=== PATIENT | female | born 1950 | race Caucasian/White ===

== ENCOUNTER 2024-01-26 13:06 | Outpatient (AMB) | payer MEDICARE, SELFPAY ==
--- NOTE | 2024-01-26 13:37 | HO.NEPHOV_ITS ---
Vital Signs 01/26/24 13:39 Height 4 ft 10 in Weight 148 lb 4 oz BMI 31.0 BP 160/94 H Blood Pressure Location Lt brachial Intake Visit Reasons: Transferring care from [facility] Pickle Water Pump Operator Required: No Accompanied by: Mother Allergies penicillin G Allergy (Verified 01/25/24 08:55) Unknown HPI Comments Details: Jeanette was seen in consultation and transfer care for her CKD as a result of adult dominant polycystic kidney disease, diagnosed at 56 years incidentally. Her Dad had PKD with ESRD( was on HD for 10 years). Her 2 children has it. She has been on tolvaptan as well as Farxiga. In the past she needed drainage of the cysts by interventional radiology( Dr Dexter). She has history of low-sodium with high water intake while being on hydrochlorothiazide and is currently off that medication. She had blurry vision with losartan and was on lisinopril at some point in time. She complaints of recurrent sciatica but nothing active now. She denies flank pain, hematuria, renal stones, dysuria, orthostatic symptoms. She does not take any nonsteroidal anti-inflammatories. She is tolerating Farxiga well. She denies any chest pain, shortness of breath, paroxysmal nocturnal dyspnea, orthopnea, new bone or back pain. She has been compliant with her medications. Her BP is not well controlled. [facility] Medical History (Updated 01/26/24 @ 13:43 by Rakesh Zapata MD) Polycystic kidney Depressive disorder Anxiety disorder Social History (Updated 01/26/24 @ 13:37 by Dorcas Figueroa MA) Alcohol intake: never Patient Tobacco Use Status: Never used Tobacco Use of substances other than those prescribed or required for medical reasons: No Review of Systems Const All systems reviewed & are unremarkable except as noted in HPI and below Physical Exam Const General: comfortable and no acute distress Orientation/consciousness: patient oriented x3 HEENT Head: Yes normocephalic Mouth: Normal oral and palatal mucosa present Eyes EOM: EOMs intact bilaterally Neck Neck: Yes supple Resp Auscultation: clear to auscultation bilaterally Cardio Jugular venous distension: no JVD Rate: regular rate GI Palpation (GI): Soft to palpation Auscultation: normal bowel sounds General: Yes no CVA tenderness Back/Spine/Pelvis Back: no CVA tenderness Skin General skin exam: no rashes or lesions noted Neuro General: patient oriented x3 and moves all extremities Extrem General: Yes no pedal edema Results Reviewed Nephrology Results: No Data to Display Assessment & Plan Assessment & Plan (1) Stage 3b chronic kidney disease (CKD): Code(s): N18.32 - Chronic kidney disease, stage 3b Category: Medical (2) Polycystic kidney: Code(s): Q61.3 - Polycystic kidney, unspecified Category: Medical (3) Hypertension: Code(s): I10 - Essential (primary) hypertension Category: Medical Qualifiers: Hypertension type: secondary to other renal disorders Qualified Code(s): I15.1 - Hypertension secondary to other renal disorders Plan Jeanette has CKD from adult polycystic kidney disease. Her serum creatinine has been stable. She has mild albuminuria. She is tolerating tolvaptan well. She is on Farxiga. Her blood pressure is at goal. She maintains good hydration. If her blood pressure control is suboptimal I shall reintroduce low-dose SOPHIA inhibitor. She has no symptoms suggestive of cyst infection, cyst rupture or renal calculi. She will need renal imaging next year. I started her on lisinopril 2.5 mg daily. All these have been discussed in detail. Follow-up blood work ordered. Answered all questions. Orders: Orders Creatinine 1 Month I15.1 - Hypertension secondary to other renal disorders, N18.32 - Chronic kidney disease, stage 3b, Q61.3 - Polycystic kidney, unspecified Blood Urea Nitrogen 1 Month I15.1 - Hypertension secondary to other renal disorders, N18.32 - Chronic kidney disease, stage 3b, Q61.3 - Polycystic kidney, unspecified Electrolytes 1 Month I15.1 - Hypertension secondary to other renal disorders, N18.32 - Chronic kidney disease, stage 3b, Q61.3 - Polycystic kidney, unspecified Calcium 1 Month I15.1 - Hypertension secondary to other renal disorders, N18.32 - Chronic kidney disease, stage 3b, Q61.3 - Polycystic kidney, unspecified Vitamin D 25-OH Total 1 Month I15.1 - Hypertension secondary to other renal disorders, N18.32 - Chronic kidney disease, stage 3b, Q61.3 - Polycystic kidney, unspecified Parathyroid Hormone Intact 1 Month I15.1 - Hypertension secondary to other renal disorders, N18.32 - Chronic kidney disease, stage 3b, Q61.3 - Polycystic kidney, unspecified Medications: New lisinopril 2.5 mg PO DAILY 30 tabs 4RF Coding Level of Care Code New Pt Level 4 (21090) Diagnoses Stage 3b chronic kidney disease (CKD) N18.32 Polycystic kidney Q61.3 Hypertension secondary to other renal disorders I15.1 Hypertension type: secondary to other renal disorders
[2024-01-26 13:39] VITALS: BP 160/94; BMI 31.0
== END 2024-01-26 14:30 | disposition home or self-care (01) ==
PROVIDERS: PCP Internal Medicine; Visit Provider Internal Medicine Nephrology
DX: N18.32 Chronic kidney disease, stage 3b (principal); Q61.3 Polycystic kidney, unspecified; I15.1 Hypertension secondary to other renal disorders
CPT/HCPCS: 99204

== ENCOUNTER → 2024-01-26 13:06 | Outpatient (BNVA) | payer MEDICARE, SELFPAY | PROVIDERS: PCP Internal Medicine; Visit Provider Internal Medicine Nephrology | DX: I15.1 Hypertension secondary to other renal disorders (principal); Q61.3 Polycystic kidney, unspecified; N18.32 Chronic kidney disease, stage 3b; Z79.899 Other long term (current) drug therapy | CPT/HCPCS: 99202 ==

== ENCOUNTER 2024-02-28 11:43 | Outpatient (AMB) | payer MEDICARE, SELFPAY ==
--- NOTE | 2024-02-28 11:51 | HO.NEPHOV_ITS ---
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 Her Dad had PKD with ESRD( was on HD for 10 years). Her 2 children has it. She has been on tolvaptan as well as Farxiga. In the past she needed drainage of the cysts by interventional radiology( Dr Dexter). She has history of low-sodium with high water intake while being on hydrochlorothiazide and is currently off that medication. She had blurry vision with losartan and was on lisinopril at some point in time. She complaints of recurrent sciatica but nothing active now. She denies flank pain, hematuria, renal stones, dysuria, orthostatic symptoms. She does not take any nonsteroidal anti-inflammatories. She is tolerating Farxiga well. She denies any chest pain, shortness of breath, paroxysmal nocturnal dyspnea, orthopnea, new bone or back pain. She has been compliant with her medications. Her BP is nearly at goal. [facility] Medical History (Updated 01/26/24 @ 13:43 by Rakesh Zapata MD) Polycystic kidney Depressive disorder Anxiety disorder Social History Alcohol intake: never Patient Tobacco Use Status: Never used Tobacco Review of Systems Const All systems reviewed & are unremarkable except as noted in HPI and below Physical Exam Vital Signs: Last Vital Signs Pulse 73 02/28/24 11:52 BP 140/82 H 02/28/24 11:52 Pulse Ox 94 02/28/24 11:52 Oxygen Delivery Method Room Air 02/28/24 11:52 BMI result Body Mass Index 30.5 Const General: comfortable and no acute distress Orientation/consciousness: patient oriented x3 HEENT Head: Yes normocephalic Mouth: Normal oral and palatal mucosa present Eyes EOM: EOMs intact bilaterally Neck Neck: Yes supple Resp Auscultation: clear to auscultation bilaterally Cardio Jugular venous distension: no JVD Rate: regular rate GI Palpation (GI): Soft to palpation Auscultation: normal bowel sounds General: Yes no CVA tenderness Back/Spine/Pelvis Back: no CVA tenderness Skin General skin exam: no rashes or lesions noted Neuro General: patient oriented x3 and moves all extremities Extrem General: Yes no pedal edema Results Reviewed Nephrology Results: No Data to Display Assessment & Plan Assessment & Plan (1) Hypertension: Code(s): I10 - Essential (primary) hypertension Category: Medical Qualifiers: Hypertension type: secondary to other renal disorders Qualified Code(s): I15.1 - Hypertension secondary to other renal disorders (2) Polycystic kidney: Code(s): Q61.3 - Polycystic kidney, unspecified Category: Medical (3) Stage 3b chronic kidney disease (CKD): Code(s): N18.32 - Chronic kidney disease, stage 3b Category: Medical Plan Jeanette has CKD from adult polycystic kidney disease. Her serum creatinine has been stable. She has mild albuminuria. She is tolerating tolvaptan well. She is on Farxiga. Her blood pressure is at goal. She maintains good hydration. She can continue lisinopril 2.5 mg daily. She has no symptoms suggestive of cyst infection, cyst rupture or renal calculi. She will need renal imaging next year. All these have been discussed in detail. Follow-up blood work ordered. Answ ered all questions. Orders: Orders Creatinine 3 Months I15.1 - Hypertension secondary to other renal disorders, N18.32 - Chronic kidney disease, stage 3b, Q61.3 - Polycystic kidney, unspecified Electrolytes 3 Months I15.1 - Hypertension secondary to other renal disorders, N18.32 - Chronic kidney disease, stage 3b, Q61.3 - Polycystic kidney, unspecified Blood Urea Nitrogen 3 Months I15.1 - Hypertension secondary to other renal disorders, N18.32 - Chronic kidney disease, stage 3b, Q61.3 - Polycystic kidney, unspecified Medications: Changed From paroxetine HCl 20 mg PO DAILY To paroxetine HCl 40 mg PO DAILY 90 days 90 tabs 4RF Coding Level of Care Code Est Pt Level 4 (00625) Diagnoses Hypertension secondary to other renal disorders I15.1 Hypertension type: secondary to other renal disorders Polycystic kidney Q61.3 Stage 3b chronic kidney disease (CKD) N18.32
[2024-02-28 11:52] VITALS: BP 130/80; PULSE 73; O2SAT 94; BMI 30.5
== END 2024-02-28 12:26 | disposition home or self-care (01) ==
PROVIDERS: PCP Internal Medicine; Visit Provider Internal Medicine Nephrology
DX: I15.1 Hypertension secondary to other renal disorders (principal); Q61.2 Polycystic kidney, adult type; N18.32 Chronic kidney disease, stage 3b
CPT/HCPCS: 99214

== ENCOUNTER → 2024-02-28 11:43 | Outpatient (BNVA) | payer MEDICARE, SELFPAY | PROVIDERS: PCP Internal Medicine; Visit Provider Internal Medicine Nephrology | DX: I15.1 Hypertension secondary to other renal disorders (principal); N18.32 Chronic kidney disease, stage 3b; Q61.3 Polycystic kidney, unspecified | CPT/HCPCS: 99212 ==

== ENCOUNTER 2024-06-05 14:16 | Outpatient (AMB) | payer MEDICARE, SELFPAY ==
--- NOTE | 2024-06-05 14:30 | HO.NEPHOV ---
Vital Signs 06/05/24 14:32 Height 4 ft 10 in Weight 148 lb 2 oz BMI 31.0 BP 118/70 Blood Pressure Location Rt brachial Position Sitting Pulse 93 Pulse Source Pulse Oximeter Pulse Oximetry (%) 98 Oxygen Delivery Method Room Air Intake Visit Reasons: 3-4 mo fu w/ labs-Conf Radiographer Technologist Required: No Accompanied by: Mother Allergies penicillin G Allergy (Verified 06/05/24 14:31) Unknown Medication List - Last Reconciled 06/05/24 by Rakesh Zapata MD cholecalciferol (vitamin D3) 1,250 mcg PO .Q Monthly 90 days dapagliflozin propanediol (Farxiga) 10 mg PO DAILY lactobacillus combo no.11 (Probiotic) 1 cap PO DAILY lisinopril 2.5 mg PO DAILY paroxetine HCl 60 mg PO DAILY tolvaptan (polycys kidney dis) (Jynarque) 1 ea PO PER PKG DIR HPI Comments Details: Jeanette was seen in follow up for her CKD as a result of adult dominant polycystic kidney disease, diagnosed at 56 years incidentally. Her Dad had PKD with ESRD( was on HD for 10 years). Her 2 children has it. She has been on tolvaptan as well as Farxiga. In the past she needed drainage of the cysts by interventional radiology( Dr Dexter). She has history of low-sodium with high water intake while being on hydrochlorothiazide and is currently off that medication. She had blurry vision with losartan and was on lisinopril at some point in time. She complaints of recurrent sciatica but nothing active now. She denies flank pain, hematuria, renal stones, dysuria, orthostatic symptoms. She does not take any nonsteroidal anti-inflammatories. She is tolerating Farxiga well. She denies any chest pain, shortness of breath, paroxysmal nocturnal dyspnea, orthopnea, new bone or back pain. She has been compliant with her medications. Her BP is at goal. [facility] Medical History (Updated 01/26/24 @ 13:43 by Rakesh Zapata MD) Polycystic kidney Depressive disorder Anxiety disorder Social History Alcohol intake: never Patient Tobacco Use Status: Never used Tobacco Review of Systems Const All systems reviewed & are unremarkable except as noted in HPI and below Physical Exam Vital Signs: Last Vital Signs Pulse 93 06/05/24 14:32 BP 118/70 06/05/24 14:32 Pulse Ox 98 06/05/24 14:32 Oxygen Delivery Method Room Air 06/05/24 14:32 BMI result Body Mass Index 31.0 Const General: comfortable and no acute distress Orientation/consciousness: patient oriented x3 HEENT Head: Yes normocephalic Mouth: Normal oral and palatal mucosa present Eyes EOM: EOMs intact bilaterally Neck Neck: Yes supple Resp Auscultation: clear to auscultation bilaterally Cardio Jugular venous distension: no JVD Rate: regular rate GI Palpation (GI): Soft to palpation Auscultation: normal bowel sounds Skin General skin exam: no rashes or lesions noted Neuro General: patient oriented x3 and moves all extremities Extrem General: Yes no pedal edema Results Reviewed Nephrology Results: No Data to Display Assessment & Plan Assessment & Plan (1) Polycystic kidney: Code(s): Q61.3 - Polycystic kidney, unspecified Category: Medical (2) Stage 3b chronic kidney disease (CKD): Code(s): N18.32 - Chronic kidney disease, stage 3b Category: Medical (3) Hypertension: Code(s): I10 - Essential (primary) hypertension Category: Medical Qualifiers: Hypertension type: secondary to other renal disorders Qualified Code(s): I15.1 - Hypertension secondary to other renal disorders Rossi Reid has CKD from adult polycystic kidney disease. Her serum creatinine has been fairly stable. She has mild albuminuria. She is tolerating tolvaptan well. She is on Farxiga. Her blood pressure is at goal. She maintains good hydration. She can continue lisinopril 2.5 mg daily. She has no symptoms suggestive of cyst infection, cyst rupture or renal calculi. She will need renal imaging next year. All these have been discussed in detail. Follow-up blood work ordered. Answered all questions. Orders: Orders Creatinine 4 Months I15.1 - Hypertension secondary to other renal disorders, N18.32 - Chronic kidney disease, stage 3b, Q61.3 - Polycystic kidney, unspecified Blood Urea Nitrogen 4 Months I15.1 - Hypertension secondary to other renal disorders, N18.32 - Chronic kidney disease, stage 3b, Q61.3 - Polycystic kidney, unspecified Electrolytes 4 Months I15.1 - Hypertension secondary to other renal disorders, N18.32 - Chronic kidney disease, stage 3b, Q61.3 - Polycystic kidney, unspecified Medications: Changed From paroxetine HCl 60 mg PO DAILY To paroxetine HCl 60 mg (1.5 x 40 mg) PO DAILY 90 days 135 tabs 3RF Coding Level of Care Code Est Pt Level 4 (03458) Diagnoses Polycystic kidney Q61.3 Stage 3b chronic kidney disease (CKD) N18.32 Hypertension secondary to other renal disorders I15.1 Hypertension type: secondary to other renal disorders
[2024-06-05 14:32] VITALS: BP 118/70; PULSE 93; O2SAT 98; BMI 31.0
--- OUTSIDE RECORDS SUMMARY | 2024-06-05 17:11 | XMS_ITS | Encounter Summary ---
Author Organization [facility] Address [address] [facility] [address] [place] [address] Phone Care Team Providers Care Conduit Cleaner Name Role Phone Hazel Lowry MD Primary Care Provider [phone] Reason for Visit * Reason Comments Med Refill Encounter Details Date Type Department Care Team (Late st Contact Info) Description 03/12/2024 Refill [facility] [address] [facility] [address] [place] [address] Santiago Ramirez MD [address] [facility] [address] [place] [address] Type 2 diabetes mellitus with diabetic chronic kidney disease (HCC) Social History Tobacco Use Types Packs/Day Years Used Date Smoking Tobacco: Never Smokeless Tobacco: Never Alcohol Use Standard Drinks/Week Comments Yes 0 (1 standard drink = 0.6 oz pure alcohol) Alcoholic Drinks/day: Occasional social drink Comments Unknown Sex and Gender Information Value Date Recorded Sex Assigned at Not on file Legal Sex Female 5:17 PM EST Gender Identity Not on file Sexual Orientation Not on file documented as of this encounter Plan of Treatment Not on file documented as of this encounter Visit Diagnoses Diagnosis Type 2 diabetes mellitus with diabetic chronic kidney disease (HCC) documented in this encounter Care Teams Conduit Cleaner Relationship Specialty Start Date End Date Hazel Lowry MD [address] [place], [place] PCP - General 03/23/20 documented as of this encounter
--- OUTSIDE RECORDS SUMMARY | 2024-06-05 17:11 | XMS_ITS | Encounter Summary ---
Author Organization [facility] Address [address] [place] [address] Phone Care Team Providers Care Barley Steeper Name Role Phone Hazel Lowry MD Primary Care Provider [phone] Encounter Details Date Type Department Care Team (Late st Contact Info) Description 10/02/2020 Orders Only [facility] [address] [place] [address] Noe Cullen MD [address] [place] [phone] Chronic kidney disease, stage 2 (mild) Social History Tobacco Use Types Packs/Day Years [...] as of this encounter Visit Diagnoses Diagnosis Chronic kidney disease, stage 2 (mild) documented in this encounter Care Teams Barley Steeper Relationship Specialty Start Date End Date Hazel Lowry MD [address] [place], [place] PCP - General 03/23/20 documented as of this encounter
--- OUTSIDE RECORDS SUMMARY | 2024-06-05 17:11 | XMS_ITS | Encounter Summary ---
Author Organization [facility] Address [address] [place] [address] Phone Care Team Providers Care Supervisor Ski Production Name Role Phone Hazel Lowry MD Primary Care Provider Encounter Details Date Type Department Care Team (Late st Contact Info) Description 08/07/2020 Orders Only [facility] [address] [place] [address] Noe Cullen MD [address] [place] [address], [address] [phone] Chronic kidney disease, stage 2 (mild) Social [...] on file Sexual Orientation Not on file COVID-19 Exposure Response Date Recorded In the last month, have you been in contact with someone who was confirmed or suspected to have Coronavirus / COVID-19? No / Unsure 07/30/2020 9:10 AM EDT documented as of this encounter Plan of Treatment Not on file documented as of this encounter Procedures Procedure Name Priority Date/Time Associated Diagnosis Comments IRON PANEL (FE, TIBC, TSAT) Routine 08/31/2020 3:59 PM EDT Chronic kidney disease, stage 2 (mild) URINE ALBUMIN / CREATININE RATIO Routine 08/31/2020 3:59 PM EDT Chronic kidney disease, stage 2 (mild) VITAMIN D 25 HYDROXY Routine 08/31/2020 3:59 PM EDT Chronic kidney disease, stage 2 (mild) URINALYSIS WITH MICROSCOPIC Routine 08/31/2020 3:59 PM EDT Chronic kidney disease, stage 2 (mild) CBC Routine 08/31/2020 3:59 PM EDT Chronic kidney disease, stage 2 (mild) TSH W/REFLEX TO FT4 Routine 08/31/2020 3 :59 PM EDT Chronic kidney disease, stage 2 (mild) MAGNESIUM Routine 08/31/2020 3:59 PM EDT Chronic kidney disease, stage 2 (mild) documented in this encounter Results * TSH w/reflex to FT4 (08/31/2020 3:59 PM EDT) TSH 0.68 (0.4-4.00) uIU/mL [facility] Comment: Testing performed or reported by [facility], a Service of [facility], [address] [place] [id number] Elena Carey MD, Glue Wheel Operator Blood (Blood, Venous) 08/31/2020 3:59 PM EDT 08/31/2020 4:05 PM EDT us Noe Cullen MD LAB BLOOD ORDERABLES Final Re sult [facility] * Iron Panel (Fe, TIBC, TSAT) (08/31/2020 3:59 PM EDT) Iron 90 (30-160) MCG/DL [facility] UIBC 213 (110-370) MCG/DL [facility] TIBC 303 (140-530) MCG/DL [facility] Iron Saturation (TSat) 30 (20-55) % [facility] Comment: Testing performed or reported by [facility], a Service of [facility], [address] [place] [id number] Elena Carey MD, Glue Wheel Operator Blood (Blood, Venous) 08/31/2020 3:59 PM EDT 08/31/2020 4:05 PM EDT Noe Cullen MD LAB BLOOD ORDERABLES Final Re sult Performing Organization Address [facility] de Phone Number [facility] * (ABNORMAL) Vitamin D 25 Hydroxy (08/31/2020 3:59 PM EDT) Pathologist [facility] Vitamin D, 25-Hydroxy 52.5(H) (20-50) NG/ML [facility] Comment: Testing performed or reported by [facility], a Service of [facility], [address] [place] [phone] Elena Carey MD, Glue Wheel Operator Blood (Blood, Venous) 08/31/2020 3:59 PM EDT 08/31/2020 4:05 PM EDT Noe Cullen MD LAB BLOOD ORDERABLES Final Re sult Performing Organization Address [facility] de Phone Number [facility] * Magnesium (08/31/2020 3:59 PM EDT) [facility] Magnesium 1.6 (1.6-2.3) mg/dL [facility] Comment: Testing performed or reported by [facility], a Service of [facility], [address] [place] [phone] Elena Carey MD, Glue Wheel Operator Blood (Blood, Venous) 08/31/2020 3:59 PM EDT 08/31/2020 4:05 PM EDT Noe Cullen MD LAB BLOOD ORDERABLES Final Re sult Performing Organization Address [facility] de Phone Number [facility] * (ABNORMAL) Urinalysis with microscopic (08/31/2020 3:59 PM EDT) Pathologist [facility] Appearance COLORLESS [facility] Comment:CLEAR Specific [place] 1.008 (1.002-1. 030) [facility] pH Urine 6.0 (5.0-8.0) [facility] Albumin, Urine NEGATIVE (NEG) [facility] Glucose, Ur NEGATIVE (NEG) [facility] Ketones, Urine NEGATIVE (NEG) [facility] Bilirubin Urine NEGATIVE (NEG) [facility] Hemoglobin Presence in Urine NEGATIVE (NEG) [facility] Nitrite, Urine NEGATIVE (NEG) [facility] Leukocyte Esterase Urine 1+(A) (NEG) [facility] Urobilinogen Urine NORMAL (NORM) MG/DL [facility] WBC, Urine 1 (0-5) /HPF [facility] RBC, Urine NONE SEEN (0-3) /HPF [facility] Bacteria SLIGHT(A) (NEG) HPF [facility] Squamous Epithelial, Urine 3 (0-8) /HPF [facility] Trans Epithelial, Urine <1 /HPF [facility] Comment: Testing performed or reported by [facility], a Service of [facility], [address] [place] [phone] Elena Carey MD, Glue Wheel Operator Urine (Urine, Clean Catch) 08/31/2020 3:59 PM EDT 08/31/2020 4:06 PM EDT Noe Cullen MD LAB URINE ORDERABLES Final Re sult Performing Organization Address [facility] de Phone Number [facility] * Urine Albumin / Creatinine Ratio (08/31/2020 3:59 PM EDT) Urine Microalbumin <12.0 (<20) MG/L [facility] Comment: The urine microalbumin test is designed to monitor renal function. When screening for Bence Morel proteinuria, urine electrophoresis is recommended. Microalbumin/Creati nine Ratio Unable to calculate (0-20) MG/GM [facility] Microalb/Creat Ratio 63.0 MG/DL [facility] Comment: Testing performed or reported by [facility], a Service of [facility], [address] [place] [id number] Elena Carey MD, Glue Wheel Operator Urine (Urine, Clean Catch) 08/31/2020 3:59 PM EDT 08/31/2020 4:06 PM EDT Noe Cullen MD LAB URINE ORDERABLES Final Re sult Performing Organization Address [facility] de Phone Number [facility] * (ABNORMAL) CBC (08/31/2020 3:59 PM EDT) White Blood Cells 7.7 (4.0-11.0) K/MM3 [facility] RBC 4.06(L) (4.20-5.40 ) M/MM3 [facility] Hgb 12.2 (11.7-15.5 ) GM/DL [facility] Hematocrit 36.5 (35.7-45.8 ) % [facility] MCV 89.9 (80.0-100. 0) FL [facility] MCH 30.0 (27.0-34.0 ) PG [facility] MCHC 33.4 (33.0-37.0 ) g/dL [facility] Platelets 253 (150-460) K/MM3 [facility] RDW-SD 39.6 (<47.0) FL [facility] MPV 10.4 (9.4-12.4) FL [facility] nRBC Count 0.0 #/100 WBC'S [facility] NRBC Absolute 0.0 K/MM3 [facility] Comment: Testing performed or reported by [facility], a Service of [facility], [address] [place] [address] Elena Carey MD, Glue Wheel Operator Blood (Blood, Venous) 08/31/2020 3:59 PM EDT 08/31/2020 4:05 PM EDT Noe Cullen MD LAB BLOOD ORDERABLES Final Re sult [facility] documented in this encounter Visit Diagnoses Diagnosis Chronic kidney disease, stage 2 (mild) documented in this encounter Care Teams Supervisor Ski Production Relationship Specialty Start Date End Date Hazel Lowry MD [address] [place] [address] PCP - General 03/23/20 documented as of this encounter
--- OUTSIDE RECORDS SUMMARY | 2024-06-05 17:11 | XMS_ITS | Patient Health Record ---
Author Organization [facility] Address [address] [place] [address] Support Name Relationship Address Phone GEENA PAIZ Guarantor Unknown [phone] Reason For Referral No Information Medications Medication SIG (Take, Route, Fr equency, Duration) Notes Start Date End Date Status Lisinopril 10MG 1 ORAL daily for -3 [facility]- 07/30/2012 Active PARoxetine HCl 10MG 1 ORAL daily for -3 [facility]- 11/08/2011 Active Wellbutrin SR 150MG 1 ORAL twice daily for -3 [place] [facility] 07/11 Active Vitamin D2 50,000 IU ORAL WEEKLY for -3 [place] [facility] 07/30/2012 Active Problems Problem Type SNOMED Code ICD Code Onset Dates Problem Status W/U Status Risk Notes Problem Depressive disorder (17434634) Depressive disorder, not elsewhere classified (311) Active confirmed Major Problem 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, 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
--- OUTSIDE RECORDS SUMMARY | 2024-06-05 17:11 | XMS_ITS | Encounter Summary ---
Author Organization [facility] Address [address] [place] [address] Phone Care Team Providers Care Loan Associate Name Role Phone Hazel Lowry MD Primary Care Provider Encounter Details Date Type Department Care Team (Late st Contact Info) Description 07/10/2020 Orders Only [facility] [address] [place] [address] Noe Cullen MD [address] [place] [phone] Chronic kidney disease, stage 2 (mild) Social [...] have Coronavirus / COVID-19? No / Unsure 06/24/2020 8:34 AM EDT documented as of this encounter Plan of Treatment Not on file documented as of this encounter Procedures Procedure Name Priority Date/Time Associated Diagnosis Comments RENAL FUNCTION PANEL Routine 08/04/2020 9:28 AM EDT documented in this encounter Results * (ABNORMAL) Renal Function Panel (08/04/2020 9:28 AM EDT) Glucose 103(H) (70-99) MG/DL [facility] BUN 31(H) (8-23) MG/DL [facility] Creatinine 1.8(H) (0.5-1.0) MG/DL [facility] Sodium 142 (133-145) MMOL/L [facility] Potassium 4.5 (3.6-5.2) MMOL/L [facility] Chloride 108(H) (98-107) MMOL/L [facility] Bicarbonate (CO2) 25 (22-29) MMOL/L [facility] Anion Gap 9 (4-17) [facility] Albumin 4.3 (3.4-4.8) GM/DL [facility] Calcium 9.3 (8.6-10.5) MG/DL [facility] Phosphorus, Serum 3.2 (2.5-4.5) MG/DL [facility] Est GFR Non 29 ML/MIN/1.7 3 M2 [facility] Comment: Creatinine based estimated glomerular filtration rate (eGFR) is calculated using the Chronic Kidney Disease Epidemiology Collaboration (CKD-EPI). The CKD-EPI creatinine equation has not been validated in children (<18 years), women or in some racial or ethnic subgroups other than Caucasians and Americans. EST GFR 34 ML/MIN/1.7 3 M2 [facility] Comment: Creatinine based estimated glomerular filtration rate (eGFR) is calculated using the Chronic Kidney Disease Epidemiology Collaboration (CKD-EPI). The CKD-EPI creatinine equation has not been validated in children (<18 years), women or in some racial or ethnic subgroups other than Caucasians and Americans. Testing performed or reported by [facility], a Service of [facility], [address] [place] [address] Elena Carey MD, Green Building Engineer 08/04/2020 9:28 AM EDT 08/04/2020 9:29 AM EDT us Noe Cullen MD LAB BLOOD ORDERABLES Final Re sult [facility] documented in this encounter Visit Diagnoses Diagnosis Chronic kidney disease, stage 2 (mild) documented in this encounter Care Teams Loan Associate Relationship Specialty Start Date End Date Hazel Lowry MD [address] [place] [address] PCP - General 03/23/20 documented as of this encounter
--- OUTSIDE RECORDS SUMMARY | 2024-06-05 17:11 | XMS_ITS | Encounter Summary ---
Author Organization [facility] Address [address] [place] [address] Phone Care Team Providers Care Director Of Promotions Name Role Phone Hazel Lowry MD Primary Care Provider Encounter Details Date Type Department Care Team (Late st Contact Info) Description 11/11/2020 Orders Only [facility] [address] [place] [address] Tracey Mccray [place] Social History Tobacco Use Types Packs/Day Years [...] documented as of this encounter Visit Diagnoses Not on filedocumented in this encounter Care Teams Director Of Promotions Relationship Specialty Start Date End Date Hazel Lowry MD [address] [place] [address] PCP - General 03/23/20 documented as of this encounter
--- OUTSIDE RECORDS SUMMARY | 2024-06-05 17:11 | XMS_ITS | Encounter Summary ---
Author Organization [facility] Address [address] [place] [address] Phone Care Team Providers Care Technology Lab Teacher Name Role Phone Hazel Lowry MD Primary Care Provider [phone] Reason for Referral * Imaging (Routine) - Closed Specialty Diagnoses / Procedures Referred By Petra campbell Referred To Contact Diagnoses Adult type polycystic kidney disease type 1 Procedures Ultrasound renal complete Noe Cullen MD Referral ID Status Reason Start Date Expiration Date Visits Re quested Visits Authorized [id number] Closed 09/25/2020 03/24/2021 1 1 Encounter Details Date Type Department Care Team (Late st Contact Info) Description 09/04/2020 Orders Only [facility] [address] [place] [phone] Noe Cullen MD [address] [place] [address], [address] [phone] Adult type polycystic kidney disease type 1 (Primary Dx); Chronic kidney disease, stage 2 (mild) Social [...] have Coronavirus / COVID-19? No / Unsure 09/01/2020 9:44 AM EDT documented as of this encounter Plan of Treatment Not on file documented as of this encounter Procedures Procedure Name Priority Date/Time Associated Diagnosis Comments US RENAL COMPLETE Routine 04/06/2021 4:0 6 PM EST Adult type polycystic kidney disease type 1 documented in this encounter Results * Ultrasound renal complete (04/06/2021 4:06 PM EST) Anatomical Region Laterality Modality Body Ultrasound us Noe Cullen MD IMG US PROCEDURES Final Resul t documented in this encounter Visit Diagnoses Diagnosis Adult type polycystic kidney disease type 1- Primary Chronic kidney disease, stage 2 (mild) documented in this encounter Care Teams Technology Lab Teacher Relationship Specialty Start Date End Date Hazel Lowry MD [address] [place] [address] PCP - General 03/23/20 documented as of this encounter
--- OUTSIDE RECORDS SUMMARY | 2024-06-05 17:11 | XMS_ITS | Encounter Summary ---
Author Organization [facility] Address [address] [place] [address] Phone Care Team Providers Care Security Investigator Name Role Phone Hazel Lowry MD Primary Care Provider [phone] Encounter Details Date Type Department Care Team (Late st Contact Info) Description 06/12/2020 Orders Only [facility] [address] [place] [address] Noe Cullen MD [address] [place] [phone] Chronic kidney disease, stage 2 (mild) Social [...] Associated Diagnosis Comments RENAL FUNCTION PANEL Routine 07/07/2020 9:58 AM EDT documented in this encounter Results * (ABNORMAL) Renal Function Panel (07/07/2020 9:58 AM EDT) Glucose 120(H) (70-99) MG/DL [facility] BUN 36(H) (8-23) MG/DL [facility] Creatinine 2.2(H) (0.5-1.0) MG/DL [facility] Sodium 139 (133-145) MMOL/L [facility] Potassium 4.8 (3.6-5.2) MMOL/L [facility] Chloride 104 (98-107) MMOL/L [facility] Bicarbonate (CO2) 25 (22-29) MMOL/L [facility] Anion Gap 10 (4-17) [facility] Albumin 4.1 (3.4-4.8) GM/DL [facility] Calcium 9.2 (8.6-10.5) MG/DL [facility] Phosphorus, Serum 4.4 (2.5-4.5) MG/DL [facility] Est GFR Non 22 ML/MIN/1.7 3 M2 [facility] Comment: Creatinine based estimated glomerular filtration rate (eGFR) is calculated using the Chronic Kidney Disease Epidemiology Collaboration (CKD-EPI). The CKD-EPI creatinine equation has not been validated in children (<18 years), women or in some racial or ethnic subgroups other than Caucasians and Americans. EST GFR 25 ML/MIN/1.7 3 M2 [facility] Comment: Creatinine based estimated glomerular filtration rate (eGFR) is calculated using the Chronic Kidney Disease Epidemiology Collaboration (CKD-EPI). The CKD-EPI creatinine equation has not been validated in children (<18 years), women or in some racial or ethnic subgroups other than Caucasians and Americans. Testing performed or reported by [facility], a Service of [facility], [address] [place] [address] Elena Carey MD, Spectrographer 07/07/2020 9:58 AM EDT 07/07/2020 10:02 AM EDT us Noe Cullen MD LAB BLOOD ORDERABLES Final Re sult [facility] documented in this encounter Visit Diagnoses Diagnosis Chronic kidney disease, stage 2 (mild) documented in this encounter Care Teams Security Investigator Relationship Specialty Start Date End Date Hazel Lowry MD [address] [place] [address] PCP - General 03/23/20 documented as of this encounter
--- OUTSIDE RECORDS SUMMARY | 2024-06-05 17:11 | XMS_ITS | Clinical Summary ---
Author Organization [facility] Address [address] [facility] [address] [place] [address] Phone Care Team Providers Care Manager Of Marketing Name Role Phone Hazel Lowry MD Primary Care Provider Allergies Active Allergy Reactions Criticality Noted Date Comments Penicillin G 05/22/2020 Medications Cholecalciferol (Vitamin D3) 1.25 MG (28530 UT) capsule Take 1 capsule by mouth 1 (one) time per week 07/29/2022 Active PARoxetine (PAXIL) 40 MG tablet Take 1 tablet (40 mg total) by mouth 1 (one) time each day in the morning 90 tablet 5 11/30/2022 Active Dapagliflozin Propanediol (Farxiga) 10 MG tabletIndication s:Type 2 diabetes mellitus with diabetic chronic kidney disease (HCC) Take 10 mg by mouth 1 (one) time each day 30 tablet 11 04/12/2023 Active Tolvaptan (Jynarque) 60 & 30 MG tablet therapy pack Take 1 dose pack by mouth in the morning and 1 dose pack in the evening. 28 each 5 08/21/2023 Active Active Problems Problem Noted Date Diagnosed Date Adult type polycystic kidney disease type 1 2 10/2021 Type 2 diabetes mellitus wit h diabetic chronic kidney disease 05/10/2021 Stage 3 chronic kidney disease, not otherwise sp ecified 05/21/2020 Anemia 05/21/2020 Low back pain 05/21/2020 Multiple congenital cysts of kidney 05/21/2020 Type 2 diabetes mellitus without complication Encounters Date Type Department Care Team Description 04/27/2024 Office Communication [facility] [address] [place] [address] Santiago Ramirez MD Adult type polycystic kidney disease type 1 (Primary Dx) 03/22/2024 Orders Only [facility] [address] [place] [phone] Santiago Ramirez MD Adult type polycystic kidney disease type 1 03/15/2024 Office Communication [facility] [address] [place] [phone] Santiago Ramirez MD 03/12/2024 Refill [facility] [address] [place] [phone] Santiago Ramirez MD Type 2 diabetes mellitus with diabetic chronic kidney disease (HCC) from Last 3 Months Family History Medical History Relation Comments Kidney disease Child both sons pdk Kidney disease Father PDK and dialysis Diabetes Mother type 2 insulin d epedent Relation Status Comments Child Father Mother Alive Social History Tobacco Use Types Packs/Day Years Used Date Smoking Tobacco: Never Smokeless Tobacco: Never Tobacco Cessation:Counseling Given: Not Answered Alcohol Use Standard Drinks/Week Comments Yes 0 (1 standard drink = 0.6 oz pure alcohol) Alcoholic Drinks/day: Occasional social drink Comments Unknown Sex and Gender Information Value Date Recorded Sex Assigned at Not on file Legal Sex Female 5:17 PM EST Gender Identity Not on file Sexual Orientation Not on file Last Filed Vital Signs Vital Sign Reading Time Taken Comments Blood Pressure 140/76 08/18/2023 9:27 AM EDT Pulse 69 08/18/2023 9:27 AM EDT Temperature - - Respiratory Rate - - Oxygen Saturation 98% 09/07/2022 8:33 AM EDT Inhaled Oxygen Concentration - - Weight 62.1 kg (137 lb) 08/18/2023 9:27 AM EDT Height 147.3 cm (4' 10 ) 12/06/2019 12:00 PM EDT Body Mass Index 28.63 12/06/2019 12:00 PM EDT Plan of Treatment Health Maintenance Due Date Last Done Comments Breast Cancer Screening 1950 Pneumococcal Vaccine: 65+ Years (1 of 2 - PCV) 1958 Colorectal Cancer Screening: Annual FOBT 2001 Colorectal Cancer Screening: Colonoscopy 2001 Colorectal Cancer Screening: Sigmoidoscopy 2001 Diabetes: Hemoglobin A1C 04/12/2020 020, 08/19/2019, 07/26/2019, Additional history exists Diabetes: Ophthalmology Exam 04/12/2020 Diabetes: Pedal Pulse Checked 04/12/2020 Diabetes: Sensory Foot Exam 04/12/2020 Diabetes: Visual Foot Exam 04/12/2020 Influenza Vaccine (#1) 2023 Hepatitis B Vaccine Aged Out No longe r eligible based on patient's age to complete this topic Procedures Procedure Name Priority Date/Time Associated Diagnosis Comments HEMOGLOBIN A1C Routine 12/12/2019 7:54 AM EDT from Last 3 Months or Most Recently Relevant to Health Maintenance Results * (ABNORMAL) Hemoglobin A1c (12/12/2019 7:54 AM EDT) Hemoglobin A1C 5.7(H) (4.0-5.6) % [facility] 3 Comment: MONITORING: In known diabetic patients, hemoglobin A1c targets should be discussed with health care provider. DIAGNOSTIC USE: ??The [place] Diabetes Association (ADA) and the World Health Organization (WHO) recommend the use of HbA1c to diagnose diabetes using a threshold of 6.5%. Patients who have an HbA1c between 5.7% and 6.4% are considered at increased risk for developing diabetes in the future. CAUTION: Falsely low HbA1c results may be observed in patients with hemolytic anemia, homozygous forms of abnormal hemoglobin (e.g. SS, CC, SC), , recent blood loss or hemoglobin F greater than 7%. Fructosamine may be used as an alternate test in these cases. REFERENCE: ADA: Standards of Medical Care in Diabetes 2020, The Journal of Clinical and Applied Research and Education Volume 43, Supplement 1 Testing performed or reported by ~[facility], ~a Service of [facility], ~[address] [place] [address], [place] [address]~ Elena Carey MD, Insole Presser~ 12/12/2019 7:54 AM EDT us Noe Cullen MD LAB BLOOD ORDERABLES Final Re sult [facility] 3 from Last 3 Months or Most Recently Relevant to Health Maintenance Insurance [facility] MEDICARE [facility] MEDICARE Care Teams Manager Of Marketing Relationship Specialty Start Date End Date Hazel Lowry MD [address] [place] [address] PCP - General 03/23/20
--- OUTSIDE RECORDS SUMMARY | 2024-06-05 17:11 | XMS_ITS | Encounter Summary ---
Author Organization [facility] Address [address] [place] [address] Phone Care Team Providers Care Investigations Director Name Role Phone Hazel Lowry MD Primary Care Provider [phone] Encounter Details Date Type Department Care Team (Late st Contact Info) Description 07/28/2021 Telephone [facility] [address] [place] [address] Noe Cullen MD [address] [place] [address], [address] [phone] Social History Tobacco Use Types Packs/Day Years [...] on file documented as of this encounter Miscellaneous Notes * Telephone Encounter - Breann Willett - 07/29/2021 11:11 AM EDT Called pt lvm to c/b * Telephone Encounter - Debora Harris - 07/28/2021 10:45 AM EDT Pt called, she would like to speak with you reg the status of her [employer] paperwork. Pt is upset because she's been calling all week. Please call her back at [phone]. Thank you documented in this encounter Plan of Treatment Not on file documented as of this encounter Visit Diagnoses Not on filedocumented in this encounter Care Teams Investigations Director Relationship Specialty Start Date End Date Hazel Lowry MD [address] [place] [address] PCP - General 03/23/20 documented as of this encounter
== END 2024-06-05 15:02 | disposition home or self-care (01) ==
LOC: HO.HKA 14:17
PROVIDERS: PCP Internal Medicine; Visit Provider Internal Medicine Nephrology
DX: Q61.3 Polycystic kidney, unspecified (principal); N18.32 Chronic kidney disease, stage 3b; I15.1 Hypertension secondary to other renal disorders
CPT/HCPCS: 99214

== ENCOUNTER → 2024-06-05 14:16 | Outpatient (BNVA) | payer MEDICARE, SELFPAY | PROVIDERS: PCP Internal Medicine; Visit Provider Internal Medicine Nephrology | DX: I15.1 Hypertension secondary to other renal disorders (principal); N18.32 Chronic kidney disease, stage 3b; Q61.3 Polycystic kidney, unspecified | CPT/HCPCS: 99212 ==

== ENCOUNTER 2024-11-01 14:47 | Outpatient (AMB) | payer MEDICARE, SELFPAY ==
--- OUTSIDE RECORDS SUMMARY | 2024-11-01 14:49 | XMS_ITS | Patient Health Record ---
Author Organization [facility] Address [address] [facility] [address] [place] [address] Support Name Relationship Address Phone GEENA PAIZ Guarantor Unknown [phone] Reason For Referral No Information Medications Medication SIG (Take, Route, Fr equency, Duration) Notes Start Date End Date Status Lisinopril 10MG 1 ORAL daily; Duration: -3 Jimenez- 013 Active PARoxetine HCl 10MG 1 ORAL daily; Duration: -3 Jimenez-MJ Active Wellbutrin SR 150MG 1 ORAL twice daily; Duration: -3 Jimenez-MJ 07/27/2012 Active Vitamin D2 50,000 IU ORAL WEEKLY; Duration: -3 Jimenez- Active Problems Problem Type SNOMED Code ICD Code Onset Dates Problem Status W/U Status Risk Notes Problem Depressive disorder (72719716) Depressive disorder, not elsewhere classified (311) Active confirmed Major Problem Congenital cystic disease of kidney (61920983) Congenital polycystic kidney, unspecified type (753.12) Active confirmed Major Problem Gynecological examination normal (827106764925038) Routine gynecological examination (V72.31) Active confirmed Major Problem Screening for malignant neoplasm of colon (047863043) Special screening for malignant neoplasms, colon (V76.51) Active confirmed Major Plan Of Treatment No Information Insurance Providers Payer Name Payer Address Payer Phone Subscriber Number Group Number Insured Name Patient Relationship to Insured Coverage Start Date Coverage End Date CIGNA [address] [place], [place] [id number] [phone] [id number] GEENA PAIZ Self - patient is the insured
--- OUTSIDE RECORDS SUMMARY | 2024-11-01 14:49 | XMS_ITS | Clinical Summary ---
Author Organization [facility] Address [address] [facility] [address] [place] [address] Phone Care Team Providers Care Paper Ruler Name Role Phone Hazel Lowry MD Primary Care Provider Allergies Active Allergy Reactions Criticality Noted Date Comments Penicillin G 05/22/2020 Medications Cholecalciferol (Vitamin D3) 1.25 MG (55072 UT) capsule Take 1 capsule by mouth [...] 05/21/2020 Type 2 diabetes mellitus without complication Family History Medical History Relation Comments Kidney [...] Last Done Comments Breast Cancer Screening 1952 Colorectal Cancer Screening: Annual FOBT 2001 Colorectal Cancer Screening: Colonoscopy 2001 Colorectal Cancer Screening: Sigmoidoscopy 2001 Diabetes: Hemoglobin A1C 04/12/2020 020, 08/19/2019, 07/26/2019, Additional history exists Diabetes: Ophthalmology Exam 04/12/2020 Diabetes: Pedal Pulse Checked 04/12/2020 Diabetes: Sensory Foot Exam 04/12/2020 Diabetes: Visual Foot Exam 04/12/2020 Influenza Vaccine (#1) 2024 05/06/2020, 2018 Pneumococcal Vaccine: 50+ Years Completed 03/24/2018, 01/09/2016 Pneumococcal Vaccine: Peds (0 to 5 Years) and At-Risk Patients (6 to 49 Years) Discontinued 03/24/2018, 01/09/2016 Hepatitis B Vaccine Aged Out No longe r eligible based on patient's age to complete this topic Procedures Procedure Name Priority Date/Time Associated Diagnosis Comments HEMOGLOBIN A1C Routine 12/12/2019 7:54 AM EDT from Last 3 Months or Most Recently Relevant to Health Maintenance Results * (ABNORMAL) Hemoglobin A1c (12/12/2019 7:54 AM EDT) Hemoglobin A1C 5.7(H) (4.0-5.6) % [facility] 3 Comment: MONITORING: In known diabetic patients, hemoglobin A1c targets should be discussed with health care provider. DIAGNOSTIC USE: The [place] Diabetes Association (ADA) and the World Health [...] Supplement 1 Testing performed or reported by ~[facility], ~a Service of [facility], ~[address] [place] [id number]~ Elena Carey MD, Professor Of Environmental Engineering~ 12/12/2019 7:54 AM EDT us Noe Cullen MD LAB BLOOD ORDERABLES Final Re sult [facility] 3 from Last 3 Months or Most Recently Relevant to Health Maintenance Insurance [facility] Medicare [facility] Medicare Care Teams Paper Ruler Relationship Specialty Start Date End Date Hazel Lowry MD [address] [place], [place] PCP - General 03/23/20
--- NOTE | 2024-11-01 14:54 | HO.NEPHOV_ITS ---
Vital Signs 11/01/24 14:56 Height 4 ft 10 in Weight 150 lb BMI 31.3 BP 120/80 Blood Pressure Location Lt brachial Position Sitting Pulse 78 Pulse Source Pulse Oximeter Pulse Oximetry (%) 98 Oxygen Delivery Method Room Air Intake Visit Reasons: 4 MO [facility] Welder Operator Required: No Accompanied by: Self / Same As Patient Allergies penicillin G Allergy (Verified 11/01/24 14:56) Unknown HPI Comments Details: Jeanette was seen in follow up for her CKD as a result of adult dominant polycystic kidney disease, diagnosed at 56 years incidentally. Her Dad had PKD with ESRD( was on HD for 10 years). Her 2 children has it. She has been on tolvaptan as well as Farxiga. In the past she needed drainage of the cysts by interventional radiology( Dr Dexter). She has history of low-sodium with high water intake while being on hydrochlorothiazide and is currently off that medica tion. She had blurry vision with losartan and was on lisinopril at some point in time. She complaints of recurrent sciatica but nothing active now. She denies flank pain, hematuria, renal stones, dysuria, orthostatic symptoms. She does not take any nonsteroidal anti-inflammatories. She is tolerating Farxiga well. She denies any chest pain, shortness of breath, paroxysmal nocturnal dyspnea, orthopnea, new bone or back pain. She has been compliant with her medications. Her BP has been at goal. She recently had rectal prolapse surgery [facility] Medical History (Updated 01/26/24 @ 13:43 by Rakesh Zapata MD) Polycystic kidney Depressive disorder Anxiety disorder Social History Alcohol intake: never Patient Tobacco Use Status: Never used Tobacco Review of Systems Const All systems reviewed & are unremarkable except as noted in HPI and below Physical Exam Const General: comfortable and no acute distress Orientation/consciousness: patient oriented x3 HEENT Head: Yes normocephalic Mouth: Normal oral and palatal mucosa present Eyes EOM: EOMs intact bilaterally Neck Neck: Yes supple Resp Auscultation: clear to auscultation bilaterally Cardio Jugular venous distension: no JVD Rate: regular rate GI Palpation (GI): Soft to palpation Auscultation: normal bowel sounds General: Yes no CVA tenderness Back/Spine/Pelvis Back: no CVA tenderness Skin General skin exam: no rashes or lesions noted Neuro General: patient oriented x3 and moves all extremities Extrem General: Yes no pedal edema Assessment & Plan Assessment & Plan (1) Stage 3b chronic kidney disease (CKD): Code(s): N18.32 - Chronic kidney disease, stage 3b Category: Medical (2) Polycystic kidney: Code(s): Q61.3 - Polycystic kidney, unspecified Category: Medical (3) Hypertension: Code(s): I10 - Essential (primary) hypertension Category: Medical Qualifiers: Hypertension type: secondary to other renal disorders Qualified Code(s): I15.1 - Hypertension secondary to other renal disorders Plan Jeanette has CKD from adult polycystic kidney disease. Her serum creatinine has been fairly stable. She has mild albuminuria. She is tolerating tolvaptan well. She is on Farxiga. Her blood pressure is at goal. She maintains good hydration. She can continue lisinopril 2.5 mg daily. She has no symptoms suggestive of cyst infection, cyst rupture or renal calculi. She will need renal imaging next year. All these have been discussed in detail. Follow-up blood work ordered. Answered all questions. Orders: Orders Blood Urea Nitrogen 3 Months I15.1 - Hypertension secondary to other renal disorders, N18.32 - Chronic kidney disease, stage 3b, Q61.3 - Polycystic kidney, unspecified Complete Blood Count Auto Diff 3 Months I15.1 - Hypertension secondary to other renal disorders, N18.32 - Chronic kidney disease, stage 3b, Q61.3 - Polycystic kidney, unspecified Parathyroid Hormone Intact 3 Months I15.1 - Hypertension secondary to other renal disorders, N18.32 - Chronic kidney disease, stage 3b, Q61.3 - Polycystic kidney, unspecified Vitamin D 25-OH Total 3 Months I15.1 - Hypertension secondary to other renal disorders, N18.32 - Chronic kidney disease, stage 3b, Q61.3 - Polycystic kidney, unspecified Creatinine 3 Months I15.1 - Hypertension secondary to other renal disorders, N18.32 - Chronic kidney disease, stage 3b, Q61.3 - Polycystic kidney, unspecified Electrolytes 3 Months I15.1 - Hypertension secondary to other renal disorders, N18.32 - Chronic kidney disease, stage 3b, Q61.3 - Polycystic kidney, unspecif ied Calcium 3 Months I15.1 - Hypertension secondary to other renal disorders, N18.32 - Chronic kidney disease, stage 3b, Q61.3 - Polycystic kidney, unspecified Phosphorus 3 Months I15.1 - Hypertension secondary to other renal disorders, N18.32 - Chronic kidney disease, stage 3b, Q61.3 - Polycystic kidney, unspecified Coding Level of Care Code Est Pt Level 4 (53509) Diagnoses Stage 3b chronic kidney disease (CKD) N18.32 Polycystic kidney Q61.3 Hypertension secondary to other renal disorders I15.1 Hypertension type: secondary to other renal disorders
[2024-11-01 14:56] VITALS: BP 120/80; PULSE 78; O2SAT 98; BMI 31.3
== END 2024-11-01 15:13 | disposition home or self-care (01) ==
LOC: HO.HKA 14:47
PROVIDERS: PCP Internal Medicine; Visit Provider Internal Medicine Nephrology
DX: N18.32 Chronic kidney disease, stage 3b (principal); Q61.3 Polycystic kidney, unspecified; I15.1 Hypertension secondary to other renal disorders
CPT/HCPCS: 99214

== ENCOUNTER → 2024-11-01 14:47 | Outpatient (BNVA) | payer MEDICARE, SELFPAY | PROVIDERS: PCP Internal Medicine; Visit Provider Internal Medicine Nephrology | DX: I15.1 Hypertension secondary to other renal disorders (principal); N18.32 Chronic kidney disease, stage 3b; Q61.3 Polycystic kidney, unspecified | CPT/HCPCS: 99212 ==

== ENCOUNTER 2025-02-28 11:24 | Outpatient (AMB) | payer MEDICARE, SELFPAY ==
--- NOTE | 2025-02-28 11:28 | HO.NEPHOV_ITS ---
Vital Signs 02/28/25 11:29 Height 4 ft 10 in Weight 149 lb BMI 31.1 BP 140/80 H Blood Pressure Location Rt brachial Position Sitting Pulse 85 Pulse Source Pulse Oximeter Pulse Oximetry (%) 98 Oxygen Delivery Method Room Air Intake Visit Reasons: 4mon f/u w/labs-Conf Federal Mediation Commissioner Required: No Accompanied by: Self / Same As Patient Allergies penicillin G Allergy (Verified 02/28/25 11:29) Unknown HPI Comments Details: Jeanette was seen in follow up for her CKD as a result of adult dominant polycystic kidney disease, diagnosed at 56 years incidentally. Her Dad had PKD with ESRD( was on HD for 10 years). Her 2 children has it. She has been on tolvaptan as well as Farxiga. In the past she needed drainage of the cysts by interventional radiology( Dr Dexter). She has history of low-sodium with high water intake while being on hydrochlorothiazide and is currently off that medication. She had blurry vision with losartan and was on lisinopril at some point in time. She complaints of recurrent sciatica but nothing active now. She denies flank pain, hematuria, renal stones, dysuria, orthostatic symptoms. She does not take any nonsteroidal anti-inflammatories. She is tolerating Farxiga well. She denies any chest pain, shortness of breath, paroxysmal nocturnal dyspnea, orthopnea, new bone or back pain. She has been compliant with her medications. Her BP has been at goal. [facility] Medical History (Updated 01/26/24 @ 13:43 by Rakesh Zapata MD) Polycystic kidney Depressive disorder Anxiety disorder Social History Alcohol intake: never Patient Tobacco Use Status: Never used Tobacco Review of Systems Const All systems reviewed & are unremarkable except as noted in HPI and below Physical Exam Vital Signs: Last Vital Signs Pulse 85 02/28/25 11:29 BP 140/80 H 02/28/25 11:29 Pulse Ox 98 02/28/25 11:29 Oxygen Delivery Method Room Air 02/28/25 11:29 BMI result Body Mass Index 31.1 Const General: comfortable and no acute distress Orientation/consciousness: patient oriented x3 HEENT Head: Yes normocephalic Mouth: Normal oral and palatal mucosa present Eyes EOM: EOMs intact bilaterally Neck Neck: Yes supple Resp Auscultation: clear to auscultation bilaterally Cardio Jugular venous distension: no JVD Rate: regular rate GI Palpation (GI): Soft to palpation Auscultation: normal bowel sounds General: Yes no CVA tenderness Back/Spine/Pelvis Back: no CVA tenderness Skin General skin exam: no rashes or lesions noted Neuro General: patient oriented x3 and moves all extremities Extrem General: Yes no pedal edema Assessment & Plan Assessment & Plan (1) Hypertension: Code(s): I10 - Essential (primary) hypertension Category: Medical Qualifiers: Hypertension type: secondary to other renal disorders Qualified Code(s): I15.1 - Hypertension secondary to other renal disorders (2) Polycystic kidney: Code(s): Q61.3 - Polycystic kidney, unspecified Category: Medical (3) Stage 3b chronic kidney disease (CKD): Code(s): N18.32 - Chronic kidney disease, stage 3b Category: Medical Plan Jeanette has CKD from adult polycystic kidney disease. Her serum creatinine has been fairly stable. She has mild albuminuria. She is tolerating tolvaptan well. She is on Farxiga. Her blood pressure is at goal. She maintains good hydration. She can continue lisinopril 2.5 mg daily. She has no symptoms suggestive of cyst infection, cyst rupture or renal calculi. She will need renal imaging next year. All these have been discussed in detail. Follow-up blood work ordered. Answered all questions. Orders: Orders Creatinine 4 Months I15.1 - Hypertension secondary to other renal disorders, N18.32 - Chronic kidney disease, stage 3b, Q61.3 - Polycystic kidney, unspecified Blood Urea Nitrogen 4 Months I15.1 - Hypertension secondary to other renal disorders, N18.32 - Chronic kidney disease, stage 3b, Q61.3 - Polycystic kidney, unspecified Electrolytes 4 Months I15.1 - Hypertension secondary to other renal disorders, N18.32 - Chronic kidney disease, stage 3b, Q61.3 - Polycystic kidney, unspecified Medications: Refilled paroxetine HCl 60 mg (1.5 x 40 mg) PO DAILY 135 tabs 3RF 90 days cholecalciferol (vitamin D3) 1,250 mcg PO .Q Monthly 3 caps 4RF 90 days dapagliflozin propanediol (Farxiga) 10 mg PO DAILY 90 tabs 3RF lisinopril 2.5 mg PO DAILY 90 tabs 5RF Coding Level of Care Code Est Pt Level 4 (03579) Diagnoses Hypertension secondary to other renal disorders I15.1 Hypertension type: secondary to other renal disorders Polycystic kidney Q61.3 Stage 3b chronic kidney disease (CKD) N18.32
[2025-02-28 11:29] VITALS: BP 140/80; PULSE 85; O2SAT 98; BMI 31.1
--- OUTSIDE RECORDS SUMMARY | 2025-02-28 13:30 | XMS_ITS | Clinical Summary ---
Author Organization [facility] Address [address] [facility] [address] [place] [address] Phone Care Team Providers Care Business Ethics Professor Name Role Phone Hazel Lowry MD Primary Care Provider Allergies Active Allergy Reactions Criticality Noted Date Comments Penicillin G 05/22/2020 Medications Cholecalciferol (Vitamin D3) 1.25 MG (31812 UT) capsule Take 1 capsule by mouth [...] AM EDT) Hemoglobin A1C 5.7(H) (4.0-5.6) % [facility] 3 Comment: MONITORING: In known diabetic patients, hemoglobin A1c targets should be discussed with health care provider. DIAGNOSTIC USE: The [place] Diabetes Association (ADA) and the World Health [...] Supplement 1 Testing performed or reported by ~[facility], ~a Service of [facility], ~[address] [place] [address]~ Eelna Carey MD, Coverage Specialist Rn~ 12/12/2019 7:54 AM EDT us Noe Cullen MD LAB BLOOD ORDERABLES Final Re sult [facility] 3 from Last 3 Months or Most Recently Relevant to Health Maintenance Insurance [facility] Medicare [facility] Medicare Care Teams Business Ethics Professor Relationship Specialty Start Date End Date Hazel Lowry MD [address] [place], [place] PCP - General 03/23/20
--- OUTSIDE RECORDS SUMMARY | 2025-02-28 13:30 | XMS_ITS | Encounter Summary ---
Author Organization [facility] Address [address] [place] [address] Phone Care Team Providers Care Tire Wrapper Name Role Phone Hazel Lowry MD Primary Care Provider [phone] Encounter Details Date Type Department Care Team (Late st Contact Info) Description 10/02/2020 Orders Only [facility] [address] [place] [address] Noe Cullen MD [address] [place] [phone] Chronic kidney disease, stage 2 (mild) Social [...] (mild) documented in this encounter Care Teams Tire Wrapper Relationship Specialty Start Date End Date Hazel Lowry MD [address] [place], [place] PCP - General 03/23/20 documented as of this encounter
--- OUTSIDE RECORDS SUMMARY | 2025-02-28 13:30 | XMS_ITS | Patient Health Record ---
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) Active confirmed Major Problem Gynecological examination normal (421137952513669) Routine gynecological examination (V72.31) Active confirmed Major Problem Screening for malignant neoplasm of colon (450353177) Special screening for malignant neoplasms, colon (V76.51) Active confirmed Major Plan Of Treatment No Information Insurance Providers Payer Name Payer Address Payer Phone Subscriber Number Group Number Insured Name Patient Relationship to Insured Coverage Start Date Coverage End Date CIGNA [address] [place], [place] [id number] [phone] [id number] GEENA PAIZ Self - patient is the insured
--- OUTSIDE RECORDS SUMMARY | 2025-02-28 13:30 | XMS_ITS | Encounter Summary ---
Author Organization [facility] Address [address] [place] [address] Phone Care Team Providers Care Dimensional Integration Engineer Name Role Phone Hazel Lowry MD Primary Care Provider Encounter Details Date Type Department Care Team (Late st Contact Info) Description 07/28/2021 Telephone [facility] [address] [place] [address] Noe Cullen MD [address] [place] [address], [address] [phone] Social History Tobacco Use Types Packs/Day Years [...] with you reg the status of her [employer] paperwork. Pt is upset because she's been calling all week. Please call her back at [phone]. Thank you documented in this encounter Plan of Treatment Not on file documented as of this encounter Visit Diagnoses Not on filedocumented in this encounter Care Teams Dimensional Integration Engineer Relationship Specialty Start Date End Date Hazel Lowry MD [address] [place] [address] PCP - General 03/23/20 documented as of this encounter
--- OUTSIDE RECORDS SUMMARY | 2025-02-28 13:30 | XMS_ITS | Encounter Summary ---
Author Organization [facility] Address [address] [place] [address] Phone Care Team Providers Care Clinical Program Coordinator Name Role Phone Hazel Lowry MD Primary Care Provider Encounter Details Date Type Department Care Team (Late st Contact Info) Description 06/12/2020 Orders Only [facility] [address] [place] [address] Noe Cullen MD [address] [place] [phone] Chronic kidney disease, stage 2 (mild) Social [...] MMOL/L [facility] Bicarbonate (CO2) 25 (22-29) MMOL/L [facility] Anion Gap 10 (4-17) [facility] Albumin 4.1 (3.4-4.8) GM/DL [facility] Calcium 9.2 (8.6-10.5) MG/DL [facility] Phosphorus, Serum 4.4 (2.5-4.5) MG/DL [facility] Est GFR Non 22 ML/MIN/1.7 3 M2 [facility] Comment: Creatinine based estimated glomerular filtration rate (eGFR) is calculated using the Chronic Kidney Disease Epidemiology Collaboration (CKD-EPI). The CKD-EPI creatinine equation has not been validated in children (<18 years), women or in some racial or ethnic subgroups other than Caucasians and Americans. EST GFR 25 ML/MIN/1.7 3 M2 [facility] Comment: Creatinine based estimated glomerular filtration rate (eGFR) is calculated using the Chronic Kidney Disease Epidemiology Collaboration (CKD-EPI). The CKD-EPI creatinine equation has not been validated in children (<18 years), women or in some racial or ethnic subgroups other than Caucasians and Americans. Testing performed or reported by [facility], a Service of [facility], [address] [place] [address] Elena Carey MD, Timers Inspector 07/07/2020 9:58 AM EDT 07/07/2020 10:02 AM EDT us Noe Cullen MD LAB BLOOD ORDERABLES Final Re sult [facility] documented in this encounter Visit Diagnoses Diagnosis Chronic kidney disease, stage 2 (mild) documented in this encounter Care Teams Clinical Program Coordinator Relationship Specialty Start Date End Date Hazel Lowry MD [address] [place] [address] PCP - General 03/23/20 documented as of this encounter
--- OUTSIDE RECORDS SUMMARY | 2025-02-28 13:30 | XMS_ITS | Encounter Summary ---
Author Organization [facility] Address [address] [place] [address] Phone Care Team Providers Care Gis Web Developer Name Role Phone Hazel Lowry MD Primary Care Provider Encounter Details Date Type Department Care Team (Late st Contact Info) Description 11/11/2020 Orders Only [facility] [address] [place] [address] Tracey Mccray [place] Social History [...] on filedocumented in this encounter Care Teams Gis Web Developer Relationship Specialty Start Date End Date Hazel Lowry MD [address] [place] [address] PCP - General 03/23/20 documented as of this encounter
--- OUTSIDE RECORDS SUMMARY | 2025-02-28 13:30 | XMS_ITS | Encounter Summary ---
Author Organization [facility] Address [address] [place] [address] Phone Care Team Providers Care Repair Mechanic Name Role Phone Hazel Lowry MD Primary Care Provider Encounter Details Date Type Department Care Team (Late st Contact Info) Description 08/07/2020 Orders Only [facility] [address] [place] [address] Noe Cullen MD [address] [place] [address], [address] [phone] Chronic kidney disease, stage 2 (mild) Social [...] 3:59 PM EDT) TSH 0.68 (0.4-4.00) uIU/mL [facility] Comment: Testing performed or reported by [facility], a Service of [facility], [address] [place] [id number] Elena Carey MD, Canal Boat Captain Blood specimen (specimen) Venous blood / Unknown 08/31/2020 3:59 PM EDT 08/31/2020 4:05 PM EDT Noe Cullen MD LAB BLOOD ORDERABLES Final Re sult [facility] * Iron Panel (Fe, TIBC, TSAT) (08/31/2020 3:59 PM EDT) Iron 90 (30-160) MCG/DL [facility] UIBC 213 (110-370) MCG/DL [facility] TIBC 303 (140-530) MCG/DL [facility] Iron Saturation (TSat) 30 (20-55) % [facility] Comment: Testing performed or reported by [facility], a Service of [facility], [address] [place] [phone] Elena Carey MD, Canal Boat Captain Blood specimen (specimen) Venous blood / Unknown 08/31/2020 3:59 PM EDT 08/31/2020 4:05 PM EDT Noe Cullen MD LAB BLOOD ORDERABLES Final Re sult Performing Organization Address [facility] de Phone Number [facility] * (ABNORMAL) Vitamin D 25 Hydroxy (08/31/2020 3:59 PM EDT) Vitamin D, 25-Hydroxy 52.5(H) (20-50) NG/ML [facility] Comment: Testing performed or reported by [facility], a Service of [facility], [address] [place] [address] Elena Carey MD, Canal Boat Captain Blood specimen (specimen) Venous blood / Unknown 08/31/2020 3:59 PM EDT 08/31/2020 4:05 PM EDT Noe Cullen MD LAB BLOOD ORDERABLES Final Re sult Performing Organization Address [facility] de Phone Number [facility] * Magnesium (08/31/2020 3:59 PM EDT) Pathologist [facility] Magnesium 1.6 (1.6-2.3) mg/dL [facility] Comment: Testing performed or reported by [facility], a Service of [facility], [address] [place] [id number] Elena Carey MD, Canal Boat Captain Blood specimen (specimen) Venous blood / Unknown 08/31/2020 3:59 PM EDT 08/31/2020 4:05 PM EDT Noe Cullen MD LAB BLOOD ORDERABLES Final Re sult Performing Organization Address [facility] de Phone Number [facility] * (ABNORMAL) Urinalysis with microscopic (08/31/2020 3:59 PM EDT) Pathologist [facility] Appearance COLORLESS [facility] Comment:CLEAR Specific Tarrs 1.008 (1.002-1. 030) [facility] pH Urine 6.0 (5.0-8.0) [facility] Albumin, Urine NEGATIVE (NEG) [facility] Glucose, Ur NEGATIVE (NEG) [facility] Ketones, Urine NEGATIVE (NEG) [facility] Bilirubin Urine NEGATIVE (NEG) [facility] Hemoglobin Presence in Urine NEGATIVE (NEG) [facility] Nitrite, Urine NEGATIVE (NEG) [facility] Leukocyte Esterase Urine 1+(A) (NEG) [facility] Urobilinogen Urine NORMAL (NORM) MG/DL [facility] WBC, Urine 1 (0-5) /HPF [facility] RBC, Urine NONE SEEN (0-3) /HPF [facility] Bacteria SLIGHT(A) (NEG) HPF [facility] Squamous Epithelial, Urine 3 (0-8) /HPF [facility] Trans Epithelial, Urine <1 /HPF [facility] Comment: Testing performed or reported by [facility], a Service of [facility], [address] [place] [phone] Elena Carey MD, Canal Boat Captain Urine specimen (specimen) Urine specimen obtained by clean catch procedure / Unknown 08/31/2020 3:59 PM EDT 08/31/2020 4:06 PM EDT Noe Cullen MD LAB URINE ORDERABLES Final Re sult Performing Organization Address [facility] de Phone Number [facility] * Urine Albumin / Creatinine Ratio (08/31/2020 3:59 PM EDT) Urine Microalbumin <12.0 (<20) MG/L [facility] Comment: The urine microalbumin test is designed to monitor renal function. When screening for Bence Morel proteinuria, urine electrophoresis is recommended. Microalbumin/Creati nine Ratio Unable to calculate (0-20) MG/GM [facility] Microalb/Creat Ratio 63.0 MG/DL [facility] Comment: Testing performed or reported by [facility], a Service of [facility], [address] [place] [phone] Elena Carey MD, Canal Boat Captain Urine specimen (specimen) Urine specimen obtained by clean catch procedure / Unknown 08/31/2020 3:59 PM EDT 08/31/2020 4:06 PM EDT Noe Cullen MD LAB URINE ORDERABLES Final Re sult Performing Organization Address [facility]/ZIP Co de Phone Number [facility] * (ABNORMAL) CBC (08/31/2020 3:59 PM EDT) White Blood Cells 7.7 (4.0-11.0) K/MM3 [facility] RBC 4.06(L) (4.20-5.40 ) M/MM3 [facility] Hgb 12.2 (11.7-15.5 ) GM/DL [facility] Hematocrit 36.5 (35.7-45.8 ) % [facility] MCV 89.9 (80.0-100. 0) FL [facility] MCH 30.0 (27.0-34.0 ) PG [facility] MCHC 33.4 (33.0-37.0 ) g/dL [facility] Platelets 253 (150-460) K/MM3 [facility] RDW-SD 39.6 (<47.0) FL [facility] MPV 10.4 (9.4-12.4) FL [facility] nRBC Count 0.0 #/100 WBC'S [facility] NRBC Absolute 0.0 K/MM3 [facility] Comment: Testing performed or reported by [facility], a Service of [facility], [address] [place] [phone] Elena Carey MD, Canal Boat Captain Blood specimen (specimen) Venous blood / Unknown 08/31/2020 3:59 PM EDT 08/31/2020 4:05 PM EDT us Noe Cullen MD LAB BLOOD ORDERABLES Final Re sult [facility] documented in this encounter Visit Diagnoses Diagnosis Chronic kidney disease, stage 2 (mild) documented in this encounter Care Teams Repair Mechanic Relationship Specialty Start Date End Date Hazel Lowry MD [address] [place] [address] PCP - General 03/23/20 documented as of this encounter
--- OUTSIDE RECORDS SUMMARY | 2025-02-28 13:30 | XMS_ITS | Encounter Summary ---
Author Organization [facility] Address [address] [place] [address] Phone Care Team Providers Care Regional Transportation Manager Name Role Phone Hazel Lowry MD Primary Care Provider [phone] Reason for Referral * Imaging (Routine) - Closed Specialty Diagnoses / Procedures Referred By Petra campbell Referred To Contact Diagnoses Adult type polycystic kidney disease type 1 Procedures Ultrasound renal complete Noe Cullen MD Referral ID Status Reason Start Date Expiration Date Visits Re quested Visits Authorized [id number] Closed 09/25/2020 03/24/2021 1 1 Encounter Details Date Type Department Care Team (Late st Contact Info) Description 09/04/2020 Orders Only [facility] [address] [facility] [place] [id number] Noe Cullen MD [address] [place] [address], [address] [phone] Adult type polycystic kidney disease type 1 [...] (mild) documented in this encounter Care Teams Regional Transportation Manager Relationship Specialty Start Date End Date Hazel Lowry MD [address] [place] [address] PCP - General 03/23/20 documented as of this encounter
--- OUTSIDE RECORDS SUMMARY | 2025-02-28 13:30 | XMS_ITS | Encounter Summary ---
Author Organization [facility] Address [address] [facility] [address] [place] [address] Phone Care Team Providers Care Top Precipitator Operator Helper Name Role Phone Hazel Lowry MD Primary Care Provider [phone] Reason for Visit * Reason Comments Med Refill Encounter Details Date Type Department Care Team (Late st Contact Info) Description 03/12/2024 Refill [facility] [address] [facility] [address] [place] [address] Santiago Ramirez MD [address] [facility] [address] [place] [address] Type 2 diabetes mellitus with [...] (HCC) documented in this encounter Care Teams Top Precipitator Operator Helper Relationship Specialty Start Date End Date Hazel Lowry MD [address], [place] PCP - General 03/23/20 documented as of this encounter
--- OUTSIDE RECORDS SUMMARY | 2025-02-28 13:30 | XMS_ITS | Encounter Summary ---
Author Organization [facility] Address [address] [place] [address] Phone Care Team Providers Care Human Resources Manager Manufacturing Name Role Phone Hazel Lowry MD Primary Care Provider [phone] Encounter Details Date Type Department Care Team (Late st Contact Info) Description 07/10/2020 Orders Only [facility] [address] [place] [address] Noe Cullen MD [address] [place] [phone] Chronic kidney disease, stage 2 (mild) Social [...] [facility] Bicarbonate (CO2) 25 (22-29) MMOL/L [facility] Anion Gap 9 (4-17) [facility] Albumin 4.3 (3.4-4.8) GM/DL [facility] Calcium 9.3 (8.6-10.5) MG/DL [facility] Phosphorus, Serum 3.2 (2.5-4.5) MG/DL [facility] Est GFR Non 29 ML/MIN/1.7 3 M2 [facility] Comment: Creatinine based estimated glomerular filtration rate (eGFR) is calculated using the Chronic Kidney Disease Epidemiology Collaboration (CKD-EPI). The CKD-EPI creatinine equation has not been validated in children (<18 years), women or in some racial or ethnic subgroups other than Caucasians and Americans. EST GFR 34 ML/MIN/1.7 3 M2 [facility] Comment: Creatinine based estimated glomerular filtration rate (eGFR) is calculated using the Chronic Kidney Disease Epidemiology Collaboration (CKD-EPI). The CKD-EPI creatinine equation has not been validated in children (<18 years), women or in some racial or ethnic subgroups other than Caucasians and Americans. Testing performed or reported by [facility], a Service of [facility], [address] [place] [address] Elena Carey MD, Director Search 08/04/2020 9:28 AM EDT 08/04/2020 9:29 AM EDT us Noe Cullen MD LAB BLOOD ORDERABLES Final Re sult [facility] documented in this encounter Visit Diagnoses Diagnosis Chronic kidney disease, stage 2 (mild) documented in this encounter Care Teams Human Resources Manager Manufacturing Relationship Specialty Start Date End Date Hazel Lowry MD [address] [place] [address] PCP - General 03/23/20 documented as of this encounter
== END 2025-02-28 11:47 | disposition home or self-care (01) ==
LOC: HO.HKA 11:25
PROVIDERS: PCP Internal Medicine; Visit Provider Internal Medicine Nephrology
DX: I15.1 Hypertension secondary to other renal disorders (principal); Q61.3 Polycystic kidney, unspecified; N18.32 Chronic kidney disease, stage 3b
CPT/HCPCS: 99214

== ENCOUNTER → 2025-02-28 11:24 | Outpatient (BNVA) | payer MEDICARE, SELFPAY | PROVIDERS: PCP Internal Medicine; Visit Provider Internal Medicine Nephrology | DX: I15.1 Hypertension secondary to other renal disorders (principal); N18.32 Chronic kidney disease, stage 3b; Q61.2 Polycystic kidney, adult type | CPT/HCPCS: 99212 ==